=== PATIENT | male | born 1975 | race Caucasian/White ===

== ENCOUNTER 2021-01-15 15:47 | Emergency (ER) | payer OTHER, SELFPAY ==
[2021-01-15 15:49] VITALS: BP 133/77; PULSE 80; RESP 16; TEMP 36.2; O2SAT 99; BMI 26.4
--- NOTE | 2021-01-15 15:58 | EDS_ITS ---
HPI History of Present Illness Chief Complaint: Upper Extremity Injury Informant: patient Occured/Mechanism Mechanism/Context: Yes blunt trauma and Yes work related Onset/Context/Timing Onset: Hours Context: Sudden Onset Quality of Pain: Dull and - Location: Right little finger Current Severity: Mild Maximum Severity: Moderate Worsened by: Palpation and movement Relieved by: Not using his hand or finger Associated Symptoms Associated Symptoms: Negative for Parasthesia, Weakness and Loss of Funtion Narrative Tetanus Immunization: >10 years Prior similar symptoms: No Recent Illness/Hospitalization: No PFSH PFSH no medical history Home Medications NK 01/15/21 [History Last Taken Unknown] Allergy/AdvReac Type Severity Reaction Status Date / Time No Known Allergies Allergy Verified 01/15/21 15:50 Surgical History (Updated 01/15/21 @ 16:41 by Marcelo Olvera) History of carpal tunnel surgery no surgical history Social History (Updated 01/15/21 @ 16:[address] Ayan Jacinto MD) Smoking Status: Current every day smoker alcohol intake: current alcohol intake frequency: a few times a month substance use type: does not use ROS ROS ED Integumentary Reports other Details: Laceration on the radial and ulnar volar side of his little finger Neurologic Neurologic: Denies paresthesias or weakness Hematologic/Lymphatic Hematologic/Lymphatic: Denies easy bleeding or easy bruising EXAM Physical Exam Const Vital Signs: 01/15/21 15:49 Temperature 97.2 F L Temperature Source Temporal Pulse Rate 80 Respiratory Rate 16 Blood Pressure 133/77 H Blood Pressure Mean 95 Pulse Ox 99 Oxygen Delivery Method Room Air Positive well nourished and well developed General Appearance ED: well developed and NAD HEENT normocephalic Eyes PERRL and EOMs intact bilaterally Resp normal respiratory effort Cardio regular rate and regular rhythm Extremity full ROM Extremity Narrative: Laceration noted on the volar radial and ulnar side of the little finger. The flexor digitorum superficialis and flexor digitorum profundus are intact. The extended minimized tendon is intact. There is no subungual hematoma noted. Cap refill is normal. Two-point discrimination is normal. Neuro oriented x3, CN's II-XII intact bilaterally and no sensory deficits noted Neuro Narrative: Median, radial and ulnar function intact. Sensorium / Orientation: alert Motor Exam: strength 5/5 throughout Psych mental status grossly normal Skin Trauma: laceration MDM MDM MDM Narrative Medical decision making narrative: X-ray was obtained to evaluate for fracture since there was a significant crush injury associated with the injury. Tetanus was updated. Will anesthetize digit and suture once x-rays been performed and reviewed. Radiography Diagnostic Testing: Three-view x-ray of the right little finger was performed. There is no evidence of fracture, subluxation or dislocation. There is soft tissue injury noted. X-ray was reviewed by me at 1636. Procedures Other Procedures Procedure(s): Repair of laceration right little finger Digit was anesthetized by a metacarpal nerve block. Total of 4 cc of 1% lidocaine was infused. Patient was complete anesthetized after 3 to 5 minutes. The wound was irrigated with a total of 200 cc of normal saline. The laceration on the radial side is 3.5 cm in length. The laceration was closed using 5-0 Ethilon. 6 interrupted sutures were placed. The laceration on the ulnar side was 1.5 cm in length and jagged. The laceration was closed using 5-0 Ethilon. A total of 3 simple interrupted sutures were placed. Patient was placed in the splint. He was referred to [facility]. Discharge Plan Triage Chief Complaint: Upper Extremity Injury ED Provider: Ayan Jacinto Dx/Rx/DC Orders Clinical Impression: Crushing injury of right little finger, initial encounter, Laceration of little finger without complication Instructions: ED Laceration, Hand: All Closures Prescriptions: No Action NK RF: 0 Stand Alone Forms: Work Status Form Primary Care Provider: Keron Mason Referrals: [facility] [GROUP OF PHYSICIANS] - 2 Days for wound check Keron Mason MD [Primary Care Provider] - Activity Restrictions/Additional Instructions: 1. Keep finger clean and dry 2. Clean wound with peroxide and Q-tip 3 times a day. Then apply bacitracin ointment 3. Wear splint during the day to prevent movement for the next 3 to 5 days. 4. Sutures out in 14 days Disposition Disposition: Home, self care
--- NOTE | 2021-01-15 16:23 | RAD_ITS ---
STUDY: X-RAY - RIGHT HAND, ATTENTION FIFTH FINGER REASON FOR EXAM: Male, 45 years old. Injury/Pain TECHNIQUE: 3 view(s) of the finger were obtained. COMPARISON: None. FINDINGS: Normal metacarpal head. Normal metacarpophalangeal joint. Normal proximal phalanx. Normal middle phalanx. Normal distal phalanx. Normal proximal interphalangeal joint. Normal distal interphalangeal joint. Mild soft tissue swelling is present around the fifth digit. A small amount of subcutaneous gas is also present due to laceration. There is no demonstrated fracture. RAD/Finger(s) Min 2 Views IMPRESSION: Mild soft tissue swelling and a small amount of subcutaneous gas around the fifth digit Electronically Signed: Fritz Bourgeois MD at 18:09 EDT , Service support ,
[2021-01-15] MEDS: Diphth,Pertuss(Acell),Tet Vac 0.5 ML Vial IM (16:46)
[2021-01-15] MEDS: Lidocaine 1% (20 ml mdv) 20 ML Vial INFILT (16:46)
[2021-01-15] MEDS: Ibuprofen 600 MG Tablet PO (17:45)
== END 2021-01-15 17:45 | disposition home or self-care (01) ==
PROVIDERS: Emergency Provider Emergency Medicine; PCP Family Medicine
DX: S61.216A Laceration without foreign body of right little finger without damage to nail, initial encounter (principal); F17.200 Nicotine dependence, unspecified, uncomplicated; Z23 Encounter for immunization; X58.XXXA Exposure to other specified factors, initial encounter; Y93.89 Activity, other specified; Y92.89 Other specified places as the place of occurrence of the external cause; Y99.0 Civilian activity done for income or pay
CPT/HCPCS: 12002; 73140; 90715; 99285

== ENCOUNTER 2021-04-02 15:30 | Outpatient (RCR) | payer OTHER, SELFPAY ==
[2021-02-25 08:37] VITALS: BMI 26.4
--- NOTE | 2021-03-13 16:02 | HP.OTEVAL_ITS ---
Patient's Visit Information GEO WHITLEY is a 45 year old M, referred to Occupational Therapy by LAKISHA Hendricks, with a diagnosis of Crushing injury or right little finger/ laceration without a foreign body. Date of Evaluation: 03/08/21 Occupational Therapist: Nilam Lopez, ADRIAN/Obie, CHT - Subjective This 45/M was seen for OT patrick today after an injury at work on 01/15/21. His injury occurred at work after an oxygen tank crushed his R little finger. He requires three lines of stitches, and they were removed 01/29/21. Pt reported that ADLs and IADLs are going fine, and he is able to work as well as before, except when he bumps it and it causes pain. Pt reported tingling at the tip of his LF, like it is asleep. - Pain R LF 1 Pain Intensity Range: 1, 3 - ROM PIP: Right 55* Left 65* DIP: Right 10* Left 25* ROM Comments: Pt has an contracture of his R LF of -35*. Pt has increased scar tissue that is limiting his ability to extend at his PIP joint. 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 Goal:: Pt will demonstrate an increase in R LF PIP flexion by 10* to return to leisure activities by d/c. Pt will demonstrate an increase in R LF DIP flexion by 10* or greater to return to leisure activities by d/c. Goal:: Pt will demonstrate a decreases in R LF PIP swelling to return to PLOF to return to leisure activities by d/c. Goal:: Pt will self-report no tingling in the tip of his R LF by d/c. 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 Pt would benefit from skilled OT services 2- 3x a week for 10 visits to increase ROM, strength, and decrease scar tissue. [place] kern, therapist educated pt on scar management, and passive/active stretches to be done at home to increase ROM. Therapist also performed joint mobilizations, and stretch/hold after heating. pt demo understanding and agree to POC. Therapy session was directly supervised and doc. approved by Nilam CAMPBELL/Obie, CHT, Rehabilitation Potential: Good - Anticipated Interventions A/AAROM/PROM, Strengthening, Scar Care, Triggerpoint Release, Orthoses, Home Program - Visit Plan Frequency: 2-3x /Week Duration: 2-4 Weeks General Plan: AROM. scar management TEXT: Thank you for the opportunity to evaluate your patient. For Medicare and Medicare HMO plans, please review the plan of care and approve it. It will need to be FAXED BACK to us at [phone] for Medicare purposes. Please let me know if there are questions or concerns regarding this plan of care. Physician Signature: Date:
--- NOTE | 2021-04-03 09:13 | HP.OTDCSUM ---
It has been my pleasure to treat GEO WHITLEY under orders from LAKISHA Hendricks, for the diagnosis of Crushing injury or right little finger/ laceration without a foreign body for a total of 6 visit(s). Please see the following information for a summary of their discharge status. % Improvement: 90 Objective/Function: Prior: PIP -. DIP -. After: PIP -. 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 Goal:: Pt will demonstrate an increase in R LF PIP flexion by 10* to return to leisure activities by d/c. Pt will demonstrate an increase in R LF DIP flexion by 10* or greater to return to leisure activities by d/c. Goal:: Pt will demonstrate a decreases in R LF PIP swelling to return to PLOF to return to leisure activities by d/c. Goal:: Pt will self-report no tingling in the tip of his R LF by d/c. Plan: Discharge pt , pt happy with results Discharge Comments: pt was seen for 6 OT visits to increase LF ROM- Therapist used serial splinting to increase ROM and blocking exercises to increase strength- pt arrives to this session states he is happy with his progress and wants to be d/c. See above for measurements. Therapist advised pt to cont. with HEP of revers blocking and use of night orthosis as needed. pt agrees. If there are questions or concerns regarding this patient's occupational therapy, please fell free to call me at [phone]. Thank you for the referral of this patient. Sincerely, Nilam Lopez, OTR/L, CHT
== END 2021-04-02 19:00 | disposition home or self-care (01) ==
LOC: OT 15:30
PROVIDERS: PCP Family Medicine; Referring Provider Physician Assistant; Visit Provider Physician Assistant
DX: S67.196D Crushing injury of right little finger, subsequent encounter (principal); S61.218D Laceration without foreign body of other finger without damage to nail, subsequent encounter
CPT/HCPCS: 97035; 97110; 97140; 97165; 97166; 97530